=== PATIENT | male | born 1970 | race Caucasian/White ===

== ENCOUNTER 2018-01-16 12:40 | Emergency (ER) | payer OTHER ==
[~2018-01-16] VITALS: Ht 185.4 cm; Wt 98.0 kg
[2018-01-16] MEDS ORDERED: ketorolac trometh inj. 60 MG/2 ML VIAL IM ONE (13:10)
[2018-01-16 13:18] LABS: CLARITY,URINE CLEAR (Clear); COLOR,URINE STRAW (Yellow); GLUCOSE, URINE NEGATIVE (Neg); KETONES,URINE NEGATIVE (Neg); LEUKOCYTE ESTERASE ,URINE NEGATIVE (Neg); NITRITES, URINE NEGATIVE (Neg); OCCULT BLOOD,URINE NEGATIVE (Neg); PROTEIN,URINE NEGATIVE (Neg); UROBILINOGEN,URINE 0.2 E.U/dL (0.2-1.0)
[2018-01-16 13:20] LABS: UA COLLECTION TYPE CLN CATCH MIDSTREAM
[2018-01-16] MEDS ORDERED: DOXY100C43 PO (13:27)
[2018-01-16 13:36] VITALS: BP 128/7
== END 2018-01-16 15:09 | disposition home or self-care (01) ==
LOC: ER 12:41
DX: J40 Bronchitis, not specified as acute or chronic (principal); K08.89 Other specified disorders of teeth and supporting structures; R10.30 Lower abdominal pain, unspecified; Z88.0 Allergy status to penicillin
CPT/HCPCS: 81003; 96372; 99283; J1885

== ENCOUNTER 2018-03-27 13:24 | Emergency (ER) | payer MEDICAID ==
[~2018-03-27] VITALS: Ht 188 cm; Wt 94.3 kg
[~2018-03-27 13:24] MED LIST: METH-360 PO; NAPR-56 PO
[2018-03-27 13:35] VITALS: BP 109/87
[2018-03-27 14:43] LABS: CLARITY,URINE CLEAR (Clear); COLOR,URINE YELLOW (Yellow); GLUCOSE, URINE NEGATIVE (Neg); KETONES,URINE 15 mg/dl (Neg); LEUKOCYTE ESTERASE ,URINE NEGATIVE (Neg); NITRITES, URINE NEGATIVE (Neg); OCCULT BLOOD,URINE NEGATIVE (Neg); PH,URINE 6.5 (4.8-8.0); PROTEIN,URINE NEGATIVE (Neg)
[2018-03-27 14:45] LABS: UA COLLECTION TYPE CLN CATCH MIDSTREAM
[2018-03-27] MEDS ORDERED: ibuprofen 200mg tablet PO ONE (14:45)
[2018-03-27] MEDS ORDERED: ibuprofen tablet 400 MG TABLET PO ONE (14:45)
[2018-03-27] MEDS ORDERED: ketorolac trometh. 30mg/ml inj. IM ONE (15:00)
[2018-03-27] MEDS ORDERED: NAPR-56 PO (15:02)
== END 2018-03-27 15:18 | disposition home or self-care (01) ==
LOC: ER 13:24
DX: R10.9 Unspecified abdominal pain (principal); R19.7 Diarrhea, unspecified; Z88.0 Allergy status to penicillin; Z79.899 Other long term (current) drug therapy
CPT/HCPCS: 81003; 96372; 99283; J1885

== ENCOUNTER 2018-06-24 09:59 | Emergency (ER) | payer MEDICAID ==
[~2018-06-24] VITALS: Ht 185.4 cm; Wt 87.3 kg
[~2018-06-24 09:59] MED LIST changes: -NAPR-56 PO
[2018-06-24 10:04] VITALS: BP 140/77
[2018-06-24] MEDS ORDERED: metroNIDAZOLE 500mg tablet PO ONE (11:45)
[2018-06-24] MEDS ORDERED: azithromycin 250mg tablet PO ONE (11:45)
[2018-06-24] MEDS ORDERED: CefTRIAXone 250MG IM Kit w/LIDOcaine IM ONE (11:45)
[2018-06-24 12:04] LABS: CLARITY,URINE CLEAR (Clear); COLOR,URINE STRAW (Yellow); GLUCOSE, URINE NEGATIVE (Neg); KETONES,URINE NEGATIVE (Neg); LEUKOCYTE ESTERASE ,URINE NEGATIVE (Neg); NITRITES, URINE NEGATIVE (Neg); OCCULT BLOOD,URINE NEGATIVE (Neg); PH,URINE 5.5 (4.8-8.0); PROTEIN,URINE NEGATIVE (Neg); UROBILINOGEN,URINE 0.2 E.U/dL (0.2-1.0)
[2018-06-24 12:07] LABS: UA COLLECTION TYPE URINAL
== END 2018-06-24 12:34 | disposition home or self-care (01) ==
LOC: ER 10:00
DX: A64 Unspecified sexually transmitted disease (principal); Z88.0 Allergy status to penicillin; Z79.899 Other long term (current) drug therapy
CPT/HCPCS: 36415; 81003; 87491; 87591; 96372; 99283; J0696; J3490

== ENCOUNTER 2018-07-14 15:57 | Emergency (ER) | payer MEDICARE, MEDICAID ==
[~2018-07-14] VITALS: Ht 185.4 cm; Wt 77.8 kg
[2018-07-14 16:12] VITALS: BP 132/79
[2018-07-14] MEDS ORDERED: hydrOXYzine 25 MG tablet PO ONE (17:25)
[2018-07-14] MEDS ORDERED: HYDR50CA PO (17:25)
[2018-07-14] MEDS ORDERED: DIVA-76 PO (17:25)
== END 2018-07-14 17:38 | disposition home or self-care (01) ==
LOC: ER 15:57
DX: F41.0 Panic disorder [episodic paroxysmal anxiety] (principal); F31.9 Bipolar disorder, unspecified
CPT/HCPCS: 99283; Q0177; 99284